=== PATIENT | female | born 1955 ===

== ENCOUNTER 2021-06-30 06:00 | Day surgery (SDC) | payer OTHER ==
[~2021-06-30 06:00] MED LIST: COZAAR50 MG PO; KEPRA PO; LAMICTAL150 M1 PO; LAMICTAL200 M1 PO; LATA
[2021-06-30] MEDS ORDERED: MACROBID 100 M100 MG PO (10:46)
[2021-06-30] MEDS ORDERED: ULTRACET PO (10:46)
== END 2021-06-30 16:21 | disposition home or self-care (01) ==
LOC: CIR.AMB 06:00
PROVIDERS: ATTEND Obstetrics & Gynecology Gynecology
DX: N81.11 Cystocele, midline (principal); N81.12 Cystocele, lateral; N72 Inflammatory disease of cervix uteri; I10 Essential (primary) hypertension; G47.33 Obstructive sleep apnea (adult) (pediatric); Z99.89 Dependence on other enabling machines and devices; G40.802 Other epilepsy, not intractable, without status epilepticus